=== PATIENT | male | born 1940 | race Caucasian/White ===

== ENCOUNTER 2017-02-21 08:44 | Outpatient (RCR) | payer MEDICARE, OTHER ==
[2017-02-21] VITALS (11 sets, daily range): BP systolic 122–168; BP diastolic 52–91; PULSE 74–108; TEMP 97.6–98.4
[~2017-02-21 08:44] MED LIST: ADVAIR 250/28 DISKU1 IH; ADVICOR PO; ALBUTEROL SULFAT3 M3 IH; ALBUTEROL0.83 MG/ML IH; ASPIRIN 81M81 MG/TA2 PO; ASPIRIN E.C. 8181 MG PO; CALCIUM 600 + V1 TA1 PO; CALCIUM500 MG PO; CEFTIN 250250 MG/TAB PO; COMBIRESP IH; COMBIVENT INH14.7 GM IH; COZAAR100 MG PO; CPAP; DALIRESP500 MCG PO; ERYTHROMYCIN500 M1 PO; FENOFIBRATE160 MG PO; FERATE27 MG PO; FLOMAX 0.40.4 MG/CAP PO; HCTZ 25MG TAB25 MG PO; HYZAAR 25 MG-101 TAB; HYZAAR 25 MG-101 TAB PO; IRON65 M1 PO; LASIX 20MG TABL20 MG PO; LASIX 40MG TABL40 MG PO; LEVAQUIN 5500 MG/TA1 PO; LEVOTHROID0.05 MG PO; MAG-OX 400400 MG PO; MULTIPLE VITAMI1 CAP PO; MULTIPLE VITAMI1 TAB PO; NIACIN500 M1 PO; OXYGEN; OXYGEN NAS; POTASSIUM CHELA99 MG PO; POTASSIUM99 MG PO; PRAVACHOL80 MG PO; PREDNISONE 5MG5 MG PO; PREDNISONE20 MG PO; RT ADVAIR 228 DISKUS IH; RT SPIRIVA18 MCG IH; SPIRIVA18 MCG IH; THEO-24400 MG PO; THEO-DUR 3300 MG/TAB PO; THEOPHYLLINE PO; TIROSINT50 MCG PO; VIAGRA100 M1; VITAMIN B-1000 MCG/T PO; VITAMIN C BUFF500 MG PO; VITAMIN C500 MG PO; ZITHROMAX 250M250 MG PO; ZITHROMAX500 M2 PO; [UNRECOGNIZED DRUG - CODE] PO; potassium
== END 2017-02-21 16:48 | disposition home or self-care (01) ==
LOC: EUO 08:44
DX: D64.9 Anemia, unspecified (principal); J44.9 Chronic obstructive pulmonary disease, unspecified; R60.0 Localized edema; Z87.891 Personal history of nicotine dependence
CPT/HCPCS: J1940; J7050; P9016

== ENCOUNTER 2017-03-28 12:00 | Day surgery (SDC) | payer MEDICARE, OTHER ==
[~2017-03-28] VITALS: Ht 168.9 cm; Wt 87.0 kg
[2017-03-28 12:58] VITALS: BP 124/67; PULSE 91; TEMP 98.4
[2017-03-28] MEDS ORDERED: COZAAR100 MG PO (13:08)
[2017-03-28] MEDS ORDERED: RT ADVAIR 528 DISKUS IH (13:15)
[2017-03-28] MEDS ORDERED: CEFTIN 250250 MG/TAB PO (13:16)
[2017-03-28 13:58] VITALS: BP 101/58; PULSE 102; TEMP 98.7
[2017-03-28 14:15] VITALS: BP 116/65; PULSE 79
[2017-03-28 14:30] VITALS: BP 114/60; PULSE 76
[2017-03-28 14:45] VITALS: BP 118/66; PULSE 79
[2017-03-28 17:51] VITALS: BP 101/59; PULSE 111
== END 2017-03-28 15:00 | disposition home or self-care (01) ==
LOC: SDCO 12:00
DX: K57.30 Diverticulosis of large intestine without perforation or abscess without bleeding (principal); D12.2 Benign neoplasm of ascending colon; K64.0 First degree hemorrhoids; K31.819 Angiodysplasia of stomach and duodenum without bleeding; D64.9 Anemia, unspecified; J44.9 Chronic obstructive pulmonary disease, unspecified; Z99.81 Dependence on supplemental oxygen; I10 Essential (primary) hypertension; E78.5 Hyperlipidemia, unspecified; E03.9 Hypothyroidism, unspecified; I50.9 Heart failure, unspecified; Z87.891 Personal history of nicotine dependence; K21.9 Gastro-esophageal reflux disease without esophagitis; K44.9 Diaphragmatic hernia without obstruction or gangrene; M19.90 Unspecified osteoarthritis, unspecified site; E07.9 Disorder of thyroid, unspecified; I34.0 Nonrheumatic mitral (valve) insufficiency
CPT/HCPCS: OP; J2704; J7030

== ENCOUNTER → 2017-10-05 | Outpatient (CLI) | payer MEDICARE, OTHER ==
[~2017-10-05] MED LIST changes: +RT ADVAIR 528 DISKUS IH
== END ==
LOC: COL.RAD 09-29 08:15
DX: M48.061 Spinal stenosis, lumbar region without neurogenic claudication (principal); M43.16 Spondylolisthesis, lumbar region; M43.12 Spondylolisthesis, cervical region

== ENCOUNTER → 2017-11-30 | Outpatient (CLI) | payer MEDICARE, OTHER | LOC: MHCPAIN 08:32 | DX: M48.061 Spinal stenosis, lumbar region without neurogenic claudication (principal) | CPT/HCPCS: J1100; Q9967 ==

== ENCOUNTER → 2017-12-13 | Outpatient (CLI) | payer MEDICARE, OTHER | LOC: MHCPAIN 13:07 | DX: G89.29 Other chronic pain (principal); M47.817 Spondylosis without myelopathy or radiculopathy, lumbosacral region; M54.16 Radiculopathy, lumbar region; M53.3 Sacrococcygeal disorders, not elsewhere classified; M48.061 Spinal stenosis, lumbar region without neurogenic claudication | CPT/HCPCS: G0463 ==

== ENCOUNTER → 2018-05-28 | Outpatient (CLI) | payer MEDICARE, OTHER ==
[~2018-05-28] MED LIST changes: +BREO IH; +NATURAL IRON65 MG PO
[2018-05-28 15:57] LABS: CREATININE, serum 1.14 mg/dL (0.66-1.25)
== END ==
LOC: COL.LAB 15:07
PROVIDERS: Internal Medicine Pulmonary Disease
DX: C34.92 Malignant neoplasm of unspecified part of left bronchus or lung (principal)

== ENCOUNTER → 2018-06-01 | Outpatient (CLI) | payer MEDICARE, OTHER | LOC: COL.RAD 09:28 | DX: C34.92 Malignant neoplasm of unspecified part of left bronchus or lung (principal) | CPT/HCPCS: A9585 ==

== ENCOUNTER → 2018-12-07 | Outpatient (CLI) | payer MEDICARE, OTHER | LOC: COL.VAS 07:30 | DX: I27.20 Pulmonary hypertension, unspecified (principal); I51.7 Cardiomegaly; I36.1 Nonrheumatic tricuspid (valve) insufficiency ==

== ENCOUNTER 2019-03-11 17:56 | Inpatient (IN) | payer MEDICARE, OTHER ==
[~2019-03-11] VITALS: Ht 170.2 cm; Wt 96.2 kg
[2019-03-11] VITALS (52 sets, daily range): BP systolic 91; BP diastolic 66; PULSE 152; TEMP 97.8; O2SAT 83–99
[2019-03-11 18:39] LABS: BASO % 0.2 % (0.0-2.0); GRAN # 10.1 (1.4-6.5); GRAN % 92.1 % (42.2-75.2); HEMOGLOBIN 10.4 g/dl (13.5-18.0); LYMPH # 0.3 (1.2-3.4); LYMPH % 2.5 % (20.0-51.0); MEAN CELL VOLUME 95 fl (80.0-100.0); MEAN CORPUSCULAR HEMOGLOBIN 30 pg (27.0-31.0); MEAN CORPUSCULAR HGB CONC 32 g/dl (33.0-37.0); MEAN PLATELET VOLUME 10.1 fl (7.4-10.4); MONO # 0.4 (0.1-0.6); MONO % 3.2 % (1.7-9.3); PLATELET COUNT 241 K/mm3 (130-400); RED BLOOD COUNT 3.44 M/mm3 (4.20-5.60); REDCELL DISTRIBUTION WIDTH-CV 13.2 % (11.5-14.5)
[2019-03-11 18:42] LABS: PROTHROMBIN TIME 11.5 SECONDS (9.7-12.8)
[2019-03-11 18:45] LABS: PARTIAL THROMBOPLASTIN TIME 31.2 SECONDS (26.0-37.0)
[2019-03-11 18:48] LABS: ALANINE AMINOTRANSFERASE 21 U/L (21-72); ALBUMIN 3.2 gm/dL (3.5-5.0); ALKALINE PHOSPHATASE 119 U/L (50-136); ANION GAP 10 mmol/L (7-16); AST,SGOT 21 U/L (15-37); BILIRUBIN,TOTAL 0.3 mg/dL (0.0-1.0); CALCIUM 9.8 mg/dL (8.4-10.2); CARBON DIOXIDE 33 mmol/L (22-30); CHLORIDE 92 mmol/L (98-107); GLUCOSE 122 mg/dL (74-106); POTASSIUM 5.2 mmol/L (3.4-5.0); SODIUM 135 mmol/L (137-145); TOTAL PROTEIN 6.5 gm/dL (6.4-8.2)
[2019-03-11 18:49] LABS: HEMATOCRIT 32.7 % (42.0-52.0)
[2019-03-11 18:50] LABS: CREATININE, serum 5.79 (0.66-1.25)
[2019-03-11 19:01] LABS: BLOOD UREA NITROGEN 135 mg/dL (9-20); TROPONIN-I < 0.012 ng/mL (0.000-0.035)
[2019-03-11] MEDS ORDERED: INCRUSE EL62.5 MCG/A INH (19:04)
[2019-03-11] MEDS ORDERED: FLOMAX 0.40.4 MG/CAP PO (19:04)
[2019-03-11] MEDS ORDERED: COMBIRESP INH (19:05)
[2019-03-11] MEDS ORDERED: RT ADVAIR 528 DISKUS INH (19:05)
[2019-03-11] MEDS ORDERED: SPIRIVA RE2.5 MCG/Ac INH (19:06)
[2019-03-11] MEDS ORDERED: LUTEIN20 M1 PO (19:06)
--- NOTE | 2019-03-11 21:15 | NUR ---
RE CALCULATED HEPARIN DRIP PER PT'S WEIGHT.NOW AT 1700 UNITS/HR WHICH IS 17 ML/HR.
--- NOTE | 2019-03-11 21:39 | NUR ---
REPORT RECEIVED FROM JOSEF ROWELL. AWAITING FOR PT'S ARRIVAL. E-PHARMACY CALLED WELL REGARDING LEVAQUIN TO COVER FOR PT'S INFECTION/PNA, OFFICE MACHINE INSPECTOR NOTIFIED WELL.
[2019-03-11] MEDS ORDERED: DOXYCYCLINE 10100 MG PO (21:42)
[2019-03-11] MEDS ORDERED: SYNTHROID0.05 MG/TA PO (21:48)
[2019-03-11] MEDS ORDERED: CALCIUM 600-D 61 TAB PO (21:55)
[2019-03-11] MEDS ORDERED: NATURAL POTASS595 MG PO (21:57)
--- NOTE | 2019-03-11 22:10 | NUR ---
PT ARRIVED IN UNIT VIA STRETCHER, ABLE TO TRANSFER SELF TO BED. PT ALERT AND ORIENTED X4, ON O2 AT 4 LPM. PT DENIES PAIN AT THIS TIME. PT ON AMIODARONE AND HEPARIN DRIP.
[2019-03-11] MEDS ORDERED: PREDNISONE20 MG PO (22:45)
[2019-03-11 22:49] LABS: THEOPHYLLINE 7.4 ug/mL (10.0-20.0)
[2019-03-11 23:05] LABS: TROPONIN-I 3 HR POST INITIAL < 0.012 ng/mL (0.000-0.034)
[2019-03-11 23:26] LABS: TSH w REFLEX 0.607 uIU/mL (0.465-4.680)
[2019-03-11 23:59] LABS: MAGNESIUM 2.7 mg/dL (1.6-2.3)
[2019-03-12] VITALS (638 sets, daily range): BP systolic 78–116; BP diastolic 46–69; PULSE 89–126; TEMP 97.5–98; O2SAT 86–100
[2019-03-12 00:23] LABS: COLLECTION METHOD CLEAN CATCH
[2019-03-12 00:33] LABS: HYALINE CAST >12 /lpf; MUCOUS Present /lpf; PH 5 (5-8); SQUAMOUS EPITHELIAL 0-2 /hpf; URINE APPEARANCE Clear; URINE BACTERIA None Seen /hpf; URINE BILIRUBIN Negative (NEGATIVE); URINE BLOOD 2+ (NEGATIVE); URINE COLOR Yellow; URINE GLUCOSE Negative (NEGATIVE); URINE KETONE Negative (NEGATIVE); URINE LEUKOCYTE ESTERASE Negative (NEGATIVE); URINE NITRATE Negative (NEGATIVE); URINE PROTEIN(semi-quant) Negative (NEGATIVE); URINE UROBILINOGEN Negative (NEGATIVE)
--- NOTE | 2019-03-12 00:36 | NUR ---
CALLED DR. MYERS SINCE PT'S HR SUSTAINING AT 120'S ANDWILL JUMP TO 130-140S AT TIMES, PER CHARLEEN FORD AMIODARONE ORDERED AND HE'LL SEE PT LANNY IN THE MORNING. PT'S BP AT 120/78 AND PT ASYMPTOMATIC AT THIS TIME. WILL CONTINUE TO MONITOR.
[2019-03-12 00:42] LABS: CREATININE, serum 5.29 (0.66-1.25); FRACTIONAL EXCRETION OF NA+ 0.8 %
--- NOTE | 2019-03-12 03:23 | NUR ---
THIS RN IS ABOUT TO CHANGE THE RATE OF AMIODARONE FOR THE 6 HRS AFTER INITIATION WHEN I NOTICED THAT THAT THE AMIODARONE WAS SET TO 0.5 MG/MIN INSTEAD OF 1 MG/MIN. E CARE WAS NOTIFIED AND ORDERED TO JUST KEPP RATE AT 0.5 MG/MIN. PT'S HR AT 110-140'S, MAINLY SUSTAINING AT 120S. BP IS 112/62. WILL CONTINUE TO MONITOR.
[2019-03-12 03:37] LABS: MEAN CELL VOLUME 97 fl (80.0-100.0); MEAN CORPUSCULAR HGB CONC 31 g/dl (33.0-37.0); MEAN PLATELET VOLUME 9.7 fl (7.4-10.4); PLATELET COUNT 206 K/mm3 (130-400); RED BLOOD COUNT 3.17 M/mm3 (4.20-5.60); REDCELL DISTRIBUTION WIDTH-CV 13.2 % (11.5-14.5)
[2019-03-12 03:38] LABS: HEMATOCRIT 30.6 % (42.0-52.0); HEMOGLOBIN 9.6 g/dl (13.5-18.0); MEAN CORPUSCULAR HEMOGLOBIN 30 pg (27.0-31.0)
[2019-03-12 03:55] LABS: ANION GAP 8 mmol/L (7-16); CALCIUM 8.7 mg/dL (8.4-10.2); CARBON DIOXIDE 31 mmol/L (22-30); CHLORIDE 97 mmol/L (98-107); GLUCOSE 115 mg/dL (74-106); POTASSIUM 4.9 mmol/L (3.4-5.0); SODIUM 136 mmol/L (137-145)
[2019-03-12 03:56] LABS: BAND 12 % (0-10); LYMPHOCYTE 4 % (20.0-51.0); METAMYELOCYTE 2 % (0-0); NEUTROPHILS 77 % (42.0-75.2)
[2019-03-12 03:57] LABS: HYPOCHROMIA 1+; PLATELET ESTIMATE NORMAL (NORMAL)
[2019-03-12 04:23] LABS: BLOOD UREA NITROGEN 129 mg/dL (9-20); CREATININE, serum 5.06 (0.66-1.25); TROPONIN-I < 0.012 ng/mL (0.000-0.035)
--- NOTE | 2019-03-12 08:30 | NUR ---
Patient alert and oriented, denies pain. at bedside. Dr Claros and Dr Eldridge in to see patient to discuss treatment plan. Pt denies SOB, just has a cough that leaves him a little winded after an episode, non productive.
--- NOTE | 2019-03-12 12:23 | NUR ---
Patient resting comfortably with family at bedside. Denies pain. HR controlled more with addition of esmolol per orders, BP dropping and MD changed esmolol dose to see if pt tolerates med better. Asymptomatic at this time
[2019-03-12 12:42] LABS: CALCIUM 8.6 mg/dL (8.4-10.2); POTASSIUM 4.8 mmol/L (3.4-5.0)
[2019-03-12 12:56] LABS: CREATININE, serum 4.68 (0.66-1.25)
--- NOTE | 2019-03-12 13:03 | NUR ---
SW met with patient and to discuss discharge planning. Patient lives at home with his . Patient's PCP is Dr Benoit and he obtains prescriptions from [facility]. Patient uses O2, a walker or cane, and a wheelchair at home. Patient does not use any home health services. Patient does have a DPOA. Patient will be seen by PT and OT. SW will continue to follow and assist with any discharge needs.
--- NOTE | 2019-03-12 16:22 | NUR ---
Patient resting comfortably and sleeping between cares. Family at bedside throughout the day. Denies pain. Urine output changing color from yellow this AM to tea colored this afternoon. Fluids still infusing, edema consistent and unchanged in BLE. Unable to assess gait as patient has remained in bed due to higher heart rates, does shift weight frequently/independently in bed.
[2019-03-13] VITALS (700 sets, daily range): BP systolic 110–129; BP diastolic 58–92; PULSE 92–101; TEMP 37.9; O2SAT 79–100
[2019-03-13 05:14] LABS: MEAN CELL VOLUME 98 fl (80.0-100.0); MEAN CORPUSCULAR HGB CONC 30 g/dl (33.0-37.0); PLATELET COUNT 240 K/mm3 (130-400); RED BLOOD COUNT 3.16 M/mm3 (4.20-5.60); REDCELL DISTRIBUTION WIDTH-CV 13.2 % (11.5-14.5)
[2019-03-13 05:18] LABS: HEMATOCRIT 30.9 % (42.0-52.0); HEMOGLOBIN 9.4 g/dl (13.5-18.0); MEAN CORPUSCULAR HEMOGLOBIN 30 pg (27.0-31.0)
[2019-03-13 05:33] LABS: CALCIUM 8.2 mg/dL (8.4-10.2); MAGNESIUM 2.6 mg/dL (1.6-2.3); PHOSPHOROUS 5.3 mg/dL (2.5-4.5); POTASSIUM 5.3 mmol/L (3.4-5.0)
[2019-03-13 05:38] LABS: CREATININE, serum 4.26 (0.66-1.25)
[2019-03-13 05:41] LABS: BAND 4 % (0-10); LYMPHOCYTE 3 % (20.0-51.0); METAMYELOCYTE 3 % (0-0); NEUTROPHILS 85 % (42.0-75.2); PLATELET ESTIMATE NORMAL (NORMAL)
--- NOTE | 2019-03-13 07:34 | NUR ---
Patient resting comfortably this AM, at bedside. Says he didn't get much sleep last night. Denies pain and SOB, no numbness or tingling. Edema in BLE and tea colored urine. HR still in afib, rates more controlled in the 90-110s on amio and heparin drip only. Plan to cardiovert this AM, pt and family agree and consent to procedure. NPO since midnight
--- NOTE | 2019-03-13 10:57 | NUR ---
First visit from the system software developer. Systems Manager prayed with patient and . No other needs right now.
--- NOTE | 2019-03-13 12:30 | NUR ---
Patient resting comfortably with at the bedside. Reviewed and signed consent paperwork for INDIO with cardioversion today at 3p with anesthesia and biometrics technician.
--- NOTE | 2019-03-13 15:22 | NUR ---
Patient consent signed for INDIO with cardioversion. MD Fregoso at bedside with CARLEE leal at bedside as well. Patient sedated with 120 propofol, 20 ketamine, and 100ml NS. Cardioverted from afib to NSR at 1522, 200 joules, only shocked once. Patient tolerated well and had no issues recovering.
--- NOTE | 2019-03-13 18:04 | NUR ---
Patient resting after cardioversion this afternoon. NSR acheived. Frequent coughing after INDIO, secretions consistent with previous sputum. Family at bedside, denies pain
--- NOTE | 2019-03-13 19:30 | NUR ---
Bedside report received from JOSEF Betts. All lines and medications reviewed.
--- NOTE | 2019-03-13 20:00 | NUR ---
Patient resting in bed at this time. Assessment complete. He is alert and oriented. at bedside. Assessment reveals clear upper lobes bilaterally with coarse and diminished lower lobes. Patient has no complaints of pain or SOB. He is alert and oriented x3. Patient says he would just like to sleep some. Repositioned for comfort. Vitals are WNL and stable. Will continue to monitor. no further needs at this time. Call light within reach.
[2019-03-14] VITALS (428 sets, daily range): BP systolic 117–156; BP diastolic 53–65; PULSE 74–98; TEMP 97.6–98.8; O2SAT 87–100
--- NOTE | 2019-03-14 | NUR ---
Patient asleep at this time. Awakens to name. No complaints of pain or discomfort. No SOB. Vitals have remained stable. No acute signs of distress. Patient has no current needs. Will continue to monitor. Call light within reach.
--- NOTE | 2019-03-14 02:15 | NUR ---
Patient has complaints at this time of some restless leg. Patient is wondering if he has any medications he can have for it. Let him know that there is nothing currently on his EMAR to help with restless leg. Let him know I could contact the physician if he needs something. Patient denies immediate need for medication at this time. Will continue to monitor. Call light within reach.
--- NOTE | 2019-03-14 04:00 | NUR ---
Patient asleep at this time. Patient O2 sats have dipped down to 90% even on 6L HFNC. Patient awakens to name. Placed on CPAP. RT notified. Patient's O2 sats are now 96%. Patient has no complaints of pain and restless leg symtpoms have stopped. No further needs. Will continue to monitor. Call light within reach.
[2019-03-14 05:38] LABS: MEAN CELL VOLUME 99 fl (80.0-100.0); MEAN CORPUSCULAR HGB CONC 31 g/dl (33.0-37.0); MEAN PLATELET VOLUME 9.5 fl (7.4-10.4); PLATELET COUNT 220 K/mm3 (130-400); RED BLOOD COUNT 2.97 M/mm3 (4.20-5.60); REDCELL DISTRIBUTION WIDTH-CV 13.4 % (11.5-14.5)
[2019-03-14 05:40] LABS: HEMATOCRIT 29.4 % (42.0-52.0); HEMOGLOBIN 9.1 g/dl (13.5-18.0); MEAN CORPUSCULAR HEMOGLOBIN 31 pg (27.0-31.0)
[2019-03-14 05:46] LABS: BAND 5 % (0-10); LYMPHOCYTE 2 % (20.0-51.0); METAMYELOCYTE 3 % (0-0); MYELOCYTE 1 % (0-0); NEUTROPHILS 86 % (42.0-75.2); PLATELET ESTIMATE NORMAL (NORMAL)
[2019-03-14 05:47] LABS: CALCIUM 8.5 mg/dL (8.4-10.2); CREATININE, serum 3.89 (0.66-1.25); POTASSIUM 5.5 mmol/L (3.4-5.0)
--- NOTE | 2019-03-14 07:44 | NUR ---
Bedside report given to JOSEF Davenport
--- NOTE | 2019-03-14 07:52 | NUR ---
Pt AAOx4 resting in bed with CPAP in place. Spouse at bedside. MD Zenobia already in to see pt - plan to convert to PO amiodarone and DC gtt. Menu provided, PO fluids and food encouraged.
--- NOTE | 2019-03-14 10:30 | NUR ---
MD Vandana here speaking with pt and spouse. All questions answered.
--- NOTE | 2019-03-14 19:16 | NUR ---
Up to floor this afternoon from ICU, no C/O pain, VS have been stable, Pt is ambulatory with standby assist.
--- NOTE | 2019-03-14 20:03 | NUR ---
Patient resting in bed, family at bedside. Assessment completed, VSS< afebrile. Denies pain. Tremors noted on patient. Patient will notify staff when needing to ambulate to restroom. Call light in reach. NO further needs at this time.
[2019-03-15] VITALS (7 sets, daily range): BP systolic 127–147; BP diastolic 52–84; PULSE 81–96; TEMP 97.3–98
--- NOTE | 2019-03-15 05:15 | NUR ---
Pt slept on/off last night. UP to use restroom several times. SOB with exertion. No needs at this time.
[2019-03-15 06:02] LABS: MEAN CELL VOLUME 98 fl (80.0-100.0); MEAN CORPUSCULAR HGB CONC 31 g/dl (33.0-37.0); MEAN PLATELET VOLUME 9.9 fl (7.4-10.4); PLATELET COUNT 247 K/mm3 (130-400); RED BLOOD COUNT 2.84 M/mm3 (4.20-5.60); REDCELL DISTRIBUTION WIDTH-CV 13.6 % (11.5-14.5)
[2019-03-15 06:03] LABS: HEMATOCRIT 27.9 % (42.0-52.0); HEMOGLOBIN 8.6 g/dl (13.5-18.0); MEAN CORPUSCULAR HEMOGLOBIN 30 pg (27.0-31.0)
[2019-03-15 06:13] LABS: CALCIUM 8.7 mg/dL (8.4-10.2); CREATININE, serum 3.41 (0.66-1.25); POTASSIUM 5.6 mmol/L (3.4-5.0)
--- NOTE | 2019-03-15 07:10 | NUR ---
report given to maisha oglesby
--- NOTE | 2019-03-15 08:43 | NUR ---
Pt sitting up in bed resting, no C/O pain at this time, shift assessments complete, left Pt call light in reach, bed in lowest position.
--- NOTE | 2019-03-15 10:01 | NUR ---
JODY met with the patient to review discharge plan and to discuss physical therapies recommendation of home health vs outpatient therapy. The patient reports that he still plans to return home with his and that he would prefer home health. SW presented the patient with Medicare.gov's list of home health agencies that serve [place]. The patient reports that he would like to wait until his returns to look over the list with her. SW to follow up with the patient and his .
--- NOTE | 2019-03-15 14:16 | NUR ---
JODY followed up with the patient and patient's , Katharina, on a home health preference. The patient and his chose [facility]. JODY contacted and faxed a referral to Azar at [facility]. SW awaiting their screening.
--- NOTE | 2019-03-15 15:09 | NUR ---
Azar, at [facility], reports that they can accept the patient for services. SW to inform the patient and patient's and will continue to follow.
--- NOTE | 2019-03-15 18:20 | NUR ---
Pt has been resting comfortably in the room he has been up to the recliner and to the bed, Pt has been to the restroom on own with use of the walker. VS have remained stable during the day with no C/O pain. Pt is still producing dark tea colored urine, Pt was educated on the restriction of fluid intake.
[2019-03-16 03:52] VITALS: BP 153/63; PULSE 88; TEMP 97.8
--- NOTE | 2019-03-16 04:49 | NUR ---
PT HAD UNEVENTFUL NOC. APPEARED TO HAVE SLEPT WELL. NO C/O PAIN. PT REMAINS HAVING HEMATURIA. PT HAS FOLLOWED FLUID RESTRICTION OF 1500 WITHOUT ISSUE THIS SHIFT. NO ISSUES OR CONSERNS VOICED OVER NOC.
[2019-03-16 07:03] LABS: MEAN CELL VOLUME 95 fl (80.0-100.0); MEAN CORPUSCULAR HGB CONC 32 g/dl (33.0-37.0); MEAN PLATELET VOLUME 9.8 fl (7.4-10.4); PLATELET COUNT 241 K/mm3 (130-400); REDCELL DISTRIBUTION WIDTH-CV 13.8 % (11.5-14.5)
[2019-03-16 07:14] LABS: CALCIUM 8.7 mg/dL (8.4-10.2); CREATININE, serum 2.99 (0.66-1.25); POTASSIUM 5.2 mmol/L (3.4-5.0)
[2019-03-16 07:28] LABS: HEMATOCRIT 25.7 % (42.0-52.0); HEMOGLOBIN 8.2 g/dl (13.5-18.0); MEAN CORPUSCULAR HEMOGLOBIN 30 pg (27.0-31.0)
[2019-03-16 08:20] LABS: EOSINOPHIL 1 % (0-4); HYPOCHROMIA 1+; LYMPHOCYTE 5 % (20.0-51.0); METAMYELOCYTE 2 % (0-0); MYELOCYTE 2 % (0-0); NEUTROPHILS 84 % (42.0-75.2); PLATELET ESTIMATE NORMAL (NORMAL)
[2019-03-16 08:50] VITALS: BP 148/60; PULSE 85; TEMP 98.3
--- NOTE | 2019-03-16 10:59 | NUR ---
Pt resting in bed, no C/O pain at this time, shift assessments complete, left Pt call light in reach, bed in lowest position.
[2019-03-16 12:45] VITALS: BP 142/56; PULSE 103; TEMP 97.6
[2019-03-16 15:29] VITALS: BP 152/60; PULSE 108
--- NOTE | 2019-03-16 18:08 | NUR ---
Pt resting comfortably in room, no C/O pain, VS have remained stable. Urine output is good but the urine remains very dark. Pt had a bath with the assistance of the SALES DEPARTMENT MANAGER, and has walked in the hallway with PT.
[2019-03-16 19:04] VITALS: BP 153/63; PULSE 92; TEMP 98.2
[2019-03-16 23:20] VITALS: BP 149/56; PULSE 89; TEMP 97.9
[2019-03-17] VITALS (12 sets, daily range): BP systolic 130–163; BP diastolic 56–690; PULSE 66–97; TEMP 97.6–98.4
--- NOTE | 2019-03-17 04:30 | NUR ---
PT HAD UNEVENTFUL NOC. APPEARED TO HAVE SLEPT WELL. NO C/O PAIN. NO ISSUES OR CONSERNS VOICED.
--- NOTE | 2019-03-17 06:48 | NUR ---
Received report from JOSEF Noriega.
[2019-03-17 06:57] LABS: RED BLOOD COUNT 2.58 M/mm3 (4.20-5.60)
[2019-03-17 06:58] LABS: MEAN CELL VOLUME 99 fl (80.0-100.0); MEAN CORPUSCULAR HGB CONC 31 g/dl (33.0-37.0); MEAN PLATELET VOLUME 10.6 fl (7.4-10.4); PLATELET COUNT 228 K/mm3 (130-400); REDCELL DISTRIBUTION WIDTH-CV 14.1 % (11.5-14.5)
[2019-03-17 07:02] LABS: HEMATOCRIT 25.6 % (42.0-52.0); HEMOGLOBIN 7.8 g/dl (13.5-18.0); MEAN CORPUSCULAR HEMOGLOBIN 30 pg (27.0-31.0)
[2019-03-17 07:04] LABS: CALCIUM 8.7 mg/dL (8.4-10.2); CREATININE, serum 2.74 (0.66-1.25); POTASSIUM 5.5 mmol/L (3.4-5.0)
[2019-03-17 07:45] LABS: BAND 3 % (0-10); LYMPHOCYTE 1 % (20.0-51.0); METAMYELOCYTE 3 % (0-0); MYELOCYTE 1 % (0-0); NEUTROPHILS 91 % (42.0-75.2)
[2019-03-17 07:46] LABS: HYPOCHROMIA 1+; PLATELET ESTIMATE NORMAL (NORMAL)
--- NOTE | 2019-03-17 08:43 | NUR ---
Pt resting in bed, spouse in room, no C/O pain at this time, shift assessments complete, left Pt call light in reach, bed in lowest position,
[2019-03-17 15:32] LABS: MEAN CELL VOLUME 96 fl (80.0-100.0); MEAN CORPUSCULAR HGB CONC 32 g/dl (33.0-37.0); MEAN PLATELET VOLUME 9.9 fl (7.4-10.4); PLATELET COUNT 241 K/mm3 (130-400); RED BLOOD COUNT 2.98 M/mm3 (4.20-5.60); REDCELL DISTRIBUTION WIDTH-CV 14.9 % (11.5-14.5)
[2019-03-17 15:33] LABS: HEMATOCRIT 28.6 % (42.0-52.0); HEMOGLOBIN 9.1 g/dl (13.5-18.0); MEAN CORPUSCULAR HEMOGLOBIN 31 pg (27.0-31.0)
--- NOTE | 2019-03-17 23:45 | NUR ---
Patient assessed around 1949. Alert and oriented, an able to make needs known. Denies having pain and discomfort. Peripheral INT to left forearm flushed. Site is without redness, warmth, swelling, and pain. Patient did state he was having SOB and dyspnea with exertion. Patient wears oxygen at 6 L/min via NC during the night. reports that he refuses to wear CPAP. LS CTA in upper lobes, diminished in lower. HRR. BSAx4. Patient on Golitely bowel prep for colonscopy tomorrow, and has been tolerating well so far. Stools are liquid and brown in color. No solid contents noted in last BM. At beginning of shift, emptied urinal with urine that was dark brown with hematuria present. Emptied urinal around 1999 that was yellow and cloudy. Denies having burning, pain, and discomfort with urination. Patient does have tremors, which is baseline for patient according to . Patient is resting in bed with eyes closed at this time. remains at bedside and staying the night. Call light is within reach.
[2019-03-18] VITALS (11 sets, daily range): BP systolic 110–146; BP diastolic 50–97; PULSE 79–102; TEMP 97.6–98.3
--- NOTE | 2019-03-18 04:28 | NUR ---
Patient has almost completed bowel prep for colonoscopy for 03/18/19. Tolerating well. Continues to have liquid stools, brown in color. No formed content present. Denies having nausea. Unable to observe any urine seperate from stool since beginning of shift. Continues to wear oxygen at 6 L/min via NC. Denies having SOB and dyspnea. Has been using bedside commode. remains at bedside. Both deny having any questions, needs, or concerns. Resting in bed with eyes closed at this time. Call light is within reach.
[2019-03-18 05:54] LABS: MEAN CELL VOLUME 96 fl (80.0-100.0); MEAN CORPUSCULAR HGB CONC 31 g/dl (33.0-37.0); MEAN PLATELET VOLUME 9.9 fl (7.4-10.4); PLATELET COUNT 227 K/mm3 (130-400); RED BLOOD COUNT 2.75 M/mm3 (4.20-5.60); REDCELL DISTRIBUTION WIDTH-CV 15.1 % (11.5-14.5)
[2019-03-18 05:57] LABS: CALCIUM 8.7 mg/dL (8.4-10.2); CREATININE, serum 2.6 (0.66-1.25); POTASSIUM 5.5 mmol/L (3.4-5.0)
[2019-03-18 06:06] LABS: HEMATOCRIT 26.5 % (42.0-52.0); HEMOGLOBIN 8.3 g/dl (13.5-18.0); MEAN CORPUSCULAR HEMOGLOBIN 30 pg (27.0-31.0)
--- NOTE | 2019-03-18 06:15 | NUR ---
Continues on bowel prep. Stools liquid, brown in color. Consent form for EGD/Colonoscopy signed by and put on chart. Continues on oxygen at 6 L/min via NC. Denies having SOB and dyspnea. Hgb decreased from 9.1 to 8.3 this morning. Voices no needs or concerns at this time. Resting in bed with call light within reach.
[2019-03-18 06:55] LABS: EOSINOPHIL 1 % (0-4); LYMPHOCYTE 5 % (20.0-51.0); NEUTROPHILS 86 % (42.0-75.2); PLATELET ESTIMATE NORMAL (NORMAL)
--- NOTE | 2019-03-18 08:40 | NUR ---
Pt resting in bed, spouse in room with Pt, no C/O pain at this time, bowel prep has 200ml left to consume. Shift assessments complete, left Pt call light in reach, bed in lowest position.
--- NOTE | 2019-03-18 17:51 | NUR ---
Received report from JOSEF Ojeda. This nurse will resume care until end of shift. patient laying in bed with at bedside. Post ops monitoring in process. Denies needs at this time. Diet advanced, tolerating PO liquids and crackers. Call light within reach.
--- NOTE | 2019-03-18 23:56 | NUR ---
Patient assessed around 2124. Alert and oriented, and able to make needs known. Tolerating food and fluids well. Denies having nausea, pain, and discomfort. Peripheral INT to left forearm flushed. Site is without redness, warmth, swelling, and pain. On oxygen at 6 L/min via NC. Denies having SOB and dyspnea. LS CTA. HRR. BSAx4. Non pitting edema BUE, 2+ BLE. Continues to have clear, yellow urine output. Tremors present, baseline. Denies having any questions, needs, or concerns. Call light is within reach.
[2019-03-19 00:57] VITALS: BP 128/69; PULSE 75; TEMP 98.2
--- NOTE | 2019-03-19 02:42 | NUR ---
Urinal emptied. Urine is clear and yellow. Reminded patient that we need to obtain a stools sample, and voiced understanding. Resting in bed with eyes closed at this time. Call light is within reach.
[2019-03-19 04:43] VITALS: BP 149/65; PULSE 75; TEMP 98
--- NOTE | 2019-03-19 06:09 | NUR ---
Continues on oxygen at 6 L/min via NC. Denies having pain, discomfort, SOB, and dypsnea. Voices no questions, needs, or concerns at this time. Noted urine to be yellow and clear, but only small amounts when he does urinate. Denies having burning, pain, and discomfort with urination. Patient does have hesitancy when trying to urinate. Denies having feelings of not being able to empty his bladder all the way. Resting in bed with eyes closed at this time. Call light is within reach.
[2019-03-19 06:53] LABS: MEAN CELL VOLUME 97 fl (80.0-100.0); MEAN CORPUSCULAR HGB CONC 31 g/dl (33.0-37.0); MEAN PLATELET VOLUME 10.3 fl (7.4-10.4); PLATELET COUNT 237 K/mm3 (130-400); RED BLOOD COUNT 2.84 M/mm3 (4.20-5.60); REDCELL DISTRIBUTION WIDTH-CV 14.7 % (11.5-14.5)
[2019-03-19 06:58] LABS: CALCIUM 8.5 mg/dL (8.4-10.2); CREATININE, serum 2.56 (0.66-1.25); PHOSPHOROUS 4.1 mg/dL (2.5-4.5)
[2019-03-19 07:20] VITALS: BP 142/46; PULSE 79; TEMP 97.7
--- NOTE | 2019-03-19 07:21 | NUR ---
Report given to day shift nurse.
[2019-03-19 07:24] LABS: HEMATOCRIT 27.5 % (42.0-52.0); HEMOGLOBIN 8.5 g/dl (13.5-18.0); MEAN CORPUSCULAR HEMOGLOBIN 30 pg (27.0-31.0)
--- NOTE | 2019-03-19 08:55 | NUR ---
Patient assessment complete and charted. Patient laying in bed with at bedside. Patient denies chest pain, SOB, N/V. Patient denies pain. BLE 3+ and bilateral hand 2+ edema noted. Patient on 5L NC. LFA IV patent. SCDs on BLE. Dr. Benoit, Pts PCP, in to visit with patient this morning, recommending palliative care consult. This nurse will talk with Dr. Barnett before rounds. Denies other needs at this time. Call light within reach.
[2019-03-19 09:28] LABS: EOSINOPHIL 5 % (0-4); HYPOCHROMIA 1+; LYMPHOCYTE 6 % (20.0-51.0); MYELOCYTE 2 % (0-0); NEUTROPHILS 82 % (42.0-75.2); PLATELET ESTIMATE NORMAL (NORMAL)
[2019-03-19] MEDS ORDERED: PROTONIX 40MG T40 MG PO (11:29)
--- NOTE | 2019-03-19 11:34 | NUR ---
Talked with patient and his about goals of care. Family is very important to both of them and has been very helpful and supportive. Pt is still able to be at home without assistance for part of the day and his can "do what she wants to do". Their biggest frustration is that not all the doctors talk to each other and their care can sometimes be confusing. Dr Benoit was at the hospital for a social visit earlier and suggested palliative care consult for goals. Bernard did share that he keeops a journal and writes many of his thoughts and wishes in there. He shared with us that he would not want to be hooked to machine as his nears but would rather be with family and have their support. Currently he still recovery as a goal and to continue to use efforts to keep him going.
[2019-03-19] MEDS ORDERED: CORDARONE200 MG/TAB PO (11:38)
[2019-03-19 11:53] VITALS: BP 147/61; PULSE 80; TEMP 98
--- NOTE | 2019-03-19 13:17 | NUR ---
JODY followed up with the patient and his to review discharge plan. The patient and his report that they still feel comfortable with the patient returning back home with home health. The patient's reports that their granddaughter is a nurse and that she stops in frequently to check in. The patient is to discharge back home with his today, 03/19, and home health services for usp/PT/OT through [facility]. JODY also presented and explained the IM form to the patient's . The patient's verbalized understanding, signed, and she was provided a copy. No additional needs at this time.
--- NOTE | 2019-03-19 15:57 | NUR ---
Patient discharge instructions discussed with patient and . All questions answered. LFA IV discontinued, catheter intact, no complications. No other needs. patient escorted out via wheelchair by Jeanette. Per , portable O2 with patient in car.
== END 2019-03-19 16:01 | disposition home health service (06) | DRG 682 ==
LOC: COL.ER 17:56 → ICU 19:57 → MEDICAL 19:57
PROVIDERS: Family Medicine; Hospitalist; Internal Medicine Gastroenterology; Nurse Practitioner Family; Physician Assistant; ADMIT Internal Medicine
PROC: 5A2204Z Restoration of Cardiac Rhythm, Single (ICD-10-PCS; principal; 2019-03-13)
PROC: 0DBK8ZX Excision of Ascending Colon, Via Natural or Artificial Opening Endoscopic, Diagnostic (ICD-10-PCS; 2019-03-18)
PROC: 0DJ08ZZ Inspection of Upper Intestinal Tract, Via Natural or Artificial Opening Endoscopic (ICD-10-PCS; 2019-03-18 15:45)
DX: N17.9 Acute kidney failure, unspecified (principal); J18.1 Lobar pneumonia, unspecified organism; K25.4 Chronic or unspecified gastric ulcer with hemorrhage; J44.0 Chronic obstructive pulmonary disease with (acute) lower respiratory infection; J96.11 Chronic respiratory failure with hypoxia; C34.92 Malignant neoplasm of unspecified part of left bronchus or lung; D62 Acute posthemorrhagic anemia; I13.0 Hypertensive heart and chronic kidney disease with heart failure and stage 1 through stage 4 chronic kidney disease, or unspecified chronic kidney disease; I50.32 Chronic diastolic (congestive) heart failure; I48.91 Unspecified atrial fibrillation; E87.5 Hyperkalemia; E86.0 Dehydration; R53.81 Other malaise; E83.52 Hypercalcemia; E78.5 Hyperlipidemia, unspecified; E03.9 Hypothyroidism, unspecified; N40.0 Benign prostatic hyperplasia without lower urinary tract symptoms; Z66 Do not resuscitate; Z87.891 Personal history of nicotine dependence; Z88.8 Allergy status to other drugs, medicaments and biological substances; Z99.81 Dependence on supplemental oxygen; N18.9 Chronic kidney disease, unspecified; D63.1 Anemia in chronic kidney disease; R31.9 Hematuria, unspecified; D12.2 Benign neoplasm of ascending colon
CPT/HCPCS: 99231-AI; 99232-AI; 99233-AI; 99239; A4216; J0282; J0692; J1160; J1644; J1956; J2704; J7030; J7060; J7512; P9016

== ENCOUNTER 2019-05-24 07:19 | Day surgery (SDC) | payer MEDICARE, OTHER ==
[~2019-05-24] VITALS: Ht 167.6 cm; Wt 84.1 kg
[~2019-05-24 07:19] MED LIST changes: +CALCIUM 600-D 61 TAB PO; +COMBIRESP INH; +CORDARONE200 MG/TAB PO; +DOXYCYCLINE 10100 MG PO; +INCRUSE EL62.5 MCG/A INH; +LUTEIN20 M1 PO; +NATURAL POTASS595 MG PO; +PROTONIX 40MG T40 MG PO; +RT ADVAIR 528 DISKUS INH; +SPIRIVA RE2.5 MCG/Ac INH; +SYNTHROID0.05 MG/TA PO
[2019-05-24] MEDS ORDERED: CARDIZEM CD 12120 MG PO (07:57)
[2019-05-24] MEDS ORDERED: K-TAB10 PO (07:58)
[2019-05-24] MEDS ORDERED: OXYGEN MC (07:59)
[2019-05-24 08:24] VITALS: BP 130/67; PULSE 85; TEMP 98.4
[2019-05-24 09:10] VITALS: BP 109/62; PULSE 78; TEMP 98
--- NOTE | 2019-05-24 09:10 | NUR ---
Patient brought backt to bay 3, alert and oriented. Ambulated to chair without difficulty. Remains on 3L oxygen via nasal cannula. Denies any nausea or vommiting. Requesting apple juice and crackers. Vital signs stable. Will continue to monitor.
[2019-05-24 09:25] VITALS: BP 116/52; PULSE 83
--- NOTE | 2019-05-24 09:25 | NUR ---
Patient denies any pain or nausea. States he is feeling well at this time. Vital signs remain stable. at bedside. Call weiss within reach will continue to monitor.
[2019-05-24 09:40] VITALS: BP 130/65; PULSE 74
--- NOTE | 2019-05-24 09:41 | NUR ---
Patient states he feels ready to go home at this time. Vital signs stable. Awaiting physician to speak with patient at this time. All safety maintained will contiue to monitor.
--- NOTE | 2019-05-24 10:08 | NUR ---
Discharge instructions reviewed with patient and . Verbalized understanding. All questions answered. Per Dr. Arriaga copy of report given to patient. Patient to get dressed at this time.
--- NOTE | 2019-05-24 10:20 | NUR ---
Patient brought down to lobby via wheel chair. To be driven home by . Patient brought home oxygen. Placed on 3L via nasal cannula.
== END 2019-05-24 10:20 | disposition home or self-care (01) ==
LOC: SDCO 07:19
DX: D50.9 Iron deficiency anemia, unspecified (principal); K21.9 Gastro-esophageal reflux disease without esophagitis; K29.30 Chronic superficial gastritis without bleeding; I48.91 Unspecified atrial fibrillation; E66.9 Obesity, unspecified; N18.9 Chronic kidney disease, unspecified; K92.1 Melena; I11.0 Hypertensive heart disease with heart failure; I50.9 Heart failure, unspecified; J44.9 Chronic obstructive pulmonary disease, unspecified; G47.33 Obstructive sleep apnea (adult) (pediatric); J96.11 Chronic respiratory failure with hypoxia; D64.9 Anemia, unspecified; Z87.11 Personal history of peptic ulcer disease; Z79.01 Long term (current) use of anticoagulants; Z88.1 Allergy status to other antibiotic agents; Z86.010 Personal history of colon polyps; Z85.118 Personal history of other malignant neoplasm of bronchus and lung; Z92.3 Personal history of irradiation
CPT/HCPCS: J2704; J7030

== ENCOUNTER → 2019-10-16 | Outpatient (CLI) | payer MEDICARE, OTHER ==
[~2019-10-16] MED LIST changes: +CARDIZEM CD 12120 MG PO; +K-TAB10 PO; +OXYGEN MC
== END ==
LOC: COL.RAD 14:41
DX: R05 Cough (principal)

== ENCOUNTER 2019-12-23 07:00 | Outpatient (CLI) | payer MEDICARE, OTHER ==
[2019-12-23] VITALS (11 sets, daily range): BP systolic 81–142; BP diastolic 39–97; PULSE 63–136; TEMP 98
[~2019-12-23] VITALS: Ht 167.6 cm; Wt 88.3 kg
[~2019-12-23 07:00] MED LIST changes: +BREO ELLIPTA 21 EACH IH; +ELIQUIS 2.5 PO; +INCRUSE EL62.5 MCG/A IH; +UROCIT-K 5540 MG/TAB PO
--- NOTE | 2019-12-23 08:31 | NUR ---
PT BROUGHT BACK TO CT AND POSITIONED ON THE TABLE. MONITORING EQUIPMENT PLACED AND IMAGES TAKEN
--- NOTE | 2019-12-23 08:55 | NUR ---
PROCEDRUE COMPLETED. MONITORING EQUIPMENT REMOVED. PT TRANSFERED TO WHEELCHAIR AND TAKEN TO EU9.
--- NOTE | 2019-12-23 09:00 | NUR ---
Patient came to express room 9 at this time from radiology s/p lung biopsy, he is alert/oriented, vital signs stable, denies pain or discomfort, left sided puncutre site dressing is C/D/I, lungs are CTA, CXR for 1030
--- NOTE | 2019-12-23 10:32 | NUR ---
has reviewed patients CXR and it looks good/ he has given ok to discharge home, dressing C/D/I, denies pain, VS stalbe, here and I will escort them out the door
== END 2019-12-23 11:08 | disposition home or self-care (01) ==
LOC: COL.RAD 07:00
DX: C34.92 Malignant neoplasm of unspecified part of left bronchus or lung (principal)
CPT/HCPCS: 32107

== ENCOUNTER → 2020-02-26 | Outpatient (CLI) | payer MEDICARE, OTHER ==
[2020-02-26 10:59] LABS: BASO % 0.2 % (0.0-2.0); EOS # 0.1 (0.0-0.7); EOS % 0.8 % (0-4.0); GRAN # 6.5 (1.4-6.5); GRAN % 77.7 % (42.2-75.2); HEMOGLOBIN 10.6 g/dl (13.5-18.0); LYMPH # 1.1 (1.2-3.4); LYMPH % 13.7 % (20.0-51.0); MEAN CELL VOLUME 96 fl (80.0-100.0); MEAN CORPUSCULAR HEMOGLOBIN 30 pg (27.0-31.0); MEAN CORPUSCULAR HGB CONC 31 g/dl (33.0-37.0); MEAN PLATELET VOLUME 10.4 fl (7.4-10.4); MONO # 0.6 (0.1-0.6); MONO % 7.2 % (1.7-9.3); PLATELET COUNT 211 K/mm3 (130-400); RED BLOOD COUNT 3.59 M/mm3 (4.20-5.60); REDCELL DISTRIBUTION WIDTH-CV 12.9 % (11.5-14.5)
[2020-02-26 11:06] LABS: HEMATOCRIT 34.4 % (42.0-52.0)
[2020-02-26 21:22] LABS: PROCALCITONIN 0.05 ng/mL (0.00-0.09)
== END ==
LOC: COL.RAD 10:14
PROVIDERS: Internal Medicine Pulmonary Disease
DX: J84.9 Interstitial pulmonary disease, unspecified (principal); R91.8 Other nonspecific abnormal finding of lung field

== ENCOUNTER 2020-06-24 05:21 | Day surgery (SDC) | payer MEDICARE, OTHER ==
[~2020-06-24] VITALS: Ht 170.2 cm; Wt 83.5 kg
[2020-06-24 05:46] VITALS: BP 132/58; PULSE 80; TEMP 99
[2020-06-24] MEDS ORDERED: TYLENOL 325MG325 MG PO (05:54)
[2020-06-24] MEDS ORDERED: B-121000 MCG PO (06:24)
[2020-06-24] MEDS ORDERED: FOLIC ACID 11 MG/TA1 PO (06:24)
[2020-06-24 08:05] VITALS: BP 107/71; PULSE 73; TEMP 98.1
[2020-06-24] MEDS ORDERED: NORCO 325 MG-51 TAB PO (08:05)
--- NOTE | 2020-06-24 08:05 | NUR ---
The patient arrived back to [facility] from the operating room at this time. The patient appears drowsy but arouses easily to his name. The patient's post operative vital signs were started at this time. The patient's dressing to his right chest appears clean, dry and intact. The patient denies any pain or nausea at this time. The patient's is at his bedside at this time. The patient agrees to try a muffin and coffee at this time. Call light is within reach. Will continue to monitor the patient.
[2020-06-24 08:20] VITALS: BP 110/73; PULSE 77
--- NOTE | 2020-06-24 08:20 | NUR ---
The patient appears to be tolerating the muffin and coffee well. Vital signs appear stable. Call light remains within reach. at bedside. Will continue to monitor the patient.
[2020-06-24 08:35] VITALS: BP 110/60; PULSE 68
--- NOTE | 2020-06-24 08:35 | NUR ---
The patient has finished his food and drink and appeared to tolerate it well. The patient voices a desire to be discharged home.
--- NOTE | 2020-06-24 08:55 | NUR ---
Discharge instructions were reviewed with the severianotent and his at this time. They both verbalized understanding and have no questions for the nurse at this time. The patient's IV to his left wrist was removed and a pressure dressing was applied to the site. The nurse instructed the patient to get dressed and notify the staff when he is ready to be escorted out.
--- NOTE | 2020-06-24 09:10 | NUR ---
The patient was escorted out via wheelchair to a private vehicle by JOSEF Abad. The patient's belongings and discharge paperwork were sent with him. The patient's is present to drive him home.
== END 2020-06-24 09:10 | disposition home or self-care (01) ==
LOC: SDCO
DX: C34.12 Malignant neoplasm of upper lobe, left bronchus or lung (principal); J43.9 Emphysema, unspecified; I48.11 Longstanding persistent atrial fibrillation; D63.0 Anemia in neoplastic disease; G47.33 Obstructive sleep apnea (adult) (pediatric); I13.0 Hypertensive heart and chronic kidney disease with heart failure and stage 1 through stage 4 chronic kidney disease, or unspecified chronic kidney disease; I50.9 Heart failure, unspecified; N18.9 Chronic kidney disease, unspecified; E07.9 Disorder of thyroid, unspecified; G89.29 Other chronic pain; J96.11 Chronic respiratory failure with hypoxia; I25.2 Old myocardial infarction; E78.00 Pure hypercholesterolemia, unspecified; R20.2 Paresthesia of skin; M19.90 Unspecified osteoarthritis, unspecified site; Z99.81 Dependence on supplemental oxygen; Z20.828 Contact with and (suspected) exposure to other viral communicable diseases; Z79.01 Long term (current) use of anticoagulants; Z79.899 Other long term (current) drug therapy; Z92.3 Personal history of irradiation
CPT/HCPCS: C1788; J0690; J1644; J2704

== ENCOUNTER 2020-08-06 15:16 | Outpatient (RCR) | payer MEDICARE, OTHER ==
[~2020-08-06] VITALS: Ht 170.2 cm; Wt 63.6 kg
[2020-08-06] VITALS (11 sets, daily range): BP systolic 120–138; BP diastolic 65–88; PULSE 75–91; TEMP 98–98.7
[~2020-08-06 15:16] MED LIST changes: +B-121000 MCG PO; +FOLIC ACID 11 MG/TA1 PO; +NORCO 325 MG-51 TAB PO; +TYLENOL 325MG325 MG PO
--- NOTE | 2020-08-06 19:06 | NUR ---
PT TOLERATED TRANSFUSION WELL, HE WAS STEADY ON HIS FEET AFTER, PORT DC'D, FLUSHED WITH 20 CC NS AND 5 CC HEPARIN FLUSH. PT ESCORTED TO EXIT VIA WHEELCHAIR, THIS RN WAITED WITH HIM TILL HIS RIDE ARRIVED.
== END 2020-08-06 19:00 | disposition home or self-care (01) ==
LOC: EUO 15:16
DX: C34.12 Malignant neoplasm of upper lobe, left bronchus or lung (principal); D64.9 Anemia, unspecified; Z95.9 Presence of cardiac and vascular implant and graft, unspecified
CPT/HCPCS: J1644; J7050; P9040

== ENCOUNTER 2020-10-03 07:55 | Outpatient (RCR) | payer MEDICARE, OTHER ==
[2020-10-03] VITALS (9 sets, daily range): BP systolic 103–132; BP diastolic 60–92; PULSE 72–91; TEMP 97.7–98.6
[~2020-10-03] VITALS: Ht 170.2 cm; Wt 80.4 kg
[~2020-10-03 07:55] MED LIST changes: -BREO ELLIPTA 21 EACH IH
[2020-10-03] MEDS ORDERED: LASIX 40MG TABL40 MG PO (10:57)
[2020-10-03] MEDS ORDERED: DECADRON 4MG TAB4 MG PO (11:02)
[2020-10-03] MEDS ORDERED: LEVAQUIN 5500 MG/TA1 PO (11:02)
[2020-10-03] MEDS ORDERED: ZOFRAN8 MG PO (11:03)
== END 2020-10-03 14:56 | disposition home or self-care (01) ==
LOC: EUO 07:55
DX: C34.12 Malignant neoplasm of upper lobe, left bronchus or lung (principal)
CPT/HCPCS: J1644; J7050; P9040

== ENCOUNTER 2020-10-11 09:15 | Emergency (ER) | payer MEDICARE, OTHER ==
[~2020-10-11] VITALS: Ht 170.2 cm; Wt 82.3 kg
[~2020-10-11 09:15] MED LIST changes: +DECADRON 4MG TAB4 MG PO; +ZOFRAN8 MG PO
[2020-10-11 09:22] VITALS: TEMP 97.9
[2020-10-11] MEDS ORDERED: CLEOCIN HCL300 MG PO (12:19)
[2020-10-11 13:33] VITALS: BP 108/62; PULSE 108
== END 2020-10-11 12:31 | disposition home or self-care (01) ==
LOC: COL.ER 09:15
DX: S70.362A Insect bite (nonvenomous), left thigh, initial encounter (principal); L08.9 Local infection of the skin and subcutaneous tissue, unspecified; J44.9 Chronic obstructive pulmonary disease, unspecified; I50.9 Heart failure, unspecified; Z87.891 Personal history of nicotine dependence; Z90.89 Acquired absence of other organs; Z85.118 Personal history of other malignant neoplasm of bronchus and lung; Z88.8 Allergy status to other drugs, medicaments and biological substances; Z79.51 Long term (current) use of inhaled steroids; Z79.01 Long term (current) use of anticoagulants

== ENCOUNTER 2020-11-06 15:05 | Outpatient (RCR) | payer MEDICARE, OTHER ==
[~2020-11-06 15:05] MED LIST changes: +CLEOCIN HCL300 MG PO
[2020-11-07] VITALS (10 sets, daily range): BP systolic 116–149; BP diastolic 70–98; PULSE 67–83; TEMP 97.8–98.6
--- NOTE | 2020-11-07 14:15 | NUR ---
Patient to room 343 via wheelchair. Transfers self from wheelchair to bed. Denies pain. Oxygen on at 4L/NC, transferred oxygen to our system and provided new nasal cannula as the patient's had a hole in the tubing. Vital signs as follows: Temp 98.6 oral, pulse 78 and irregular, respirations 22, SpO2 99%, BP 152/81. Reviewed consent with the patient. Port accessed in right upper chest using a 19 gauge x 0.75 inch needle using sterile technique. Blood return received. Flushes without difficulty. Premedications given as ordered. Patient connected to NS at 50ml/hr. Oriented to room and process on receiving blood. Denies questions or needs.
--- NOTE | 2020-11-07 14:29 | NUR ---
Initial unit of irradiated PRBCs started at 60mL/hr with this nurse at bedside. Patient resting in bed.
--- NOTE | 2020-11-07 14:43 | NUR ---
Patient tolerates initial 15 minutes of blood transfusion without difficulty. Rate increased to 150mL/hr. Patient remains in bed. Denies additional needs.
--- NOTE | 2020-11-07 15:47 | NUR ---
Lying in bed with eyes closed. Opens eyes when enter room. Says that he is doing good. Infusion continues at 150mL/hr. Patient denies needs at this time.
--- NOTE | 2020-11-07 16:36 | NUR ---
First blood transfusion complete. Vital signs stable. Patient says that he feels good. Remains lying in bed. Second unit of irradiated PRBCs started at this time. THis nurse at bedside.
--- NOTE | 2020-11-07 16:50 | NUR ---
Vital signs stable. Patient continues to feel good. Rate increased to 150mL/hr. Provided grape juice per patient request. Offer to get patient food and patient declines at this time. Denies additional needs.
--- NOTE | 2020-11-07 18:27 | NUR ---
Transfusion complete. Vital signs stable. Patient tolerates without any adverse reactions.
--- NOTE | 2020-11-07 18:35 | NUR ---
Flushed port with 10mL saline then 5mL of Heparin. Port site deaccessed with all intact. Pressure dressing applied with 4x4 and tegaderm. Patient tolerates without difficulty. Patient is going to call at this time to have her come pick him up at ER entrance. Patient will call staff when is at ER to pick him up. Patient denies needs at this time.
--- NOTE | 2020-11-07 18:47 | NUR ---
Patient calls that his is at ER entrance to pick him up. Patient assisted out to vehicle via wheelchair by LUL Kumar.
== END 2020-11-07 18:48 | disposition home or self-care (01) ==
LOC: EUO 15:05 → SURG 11-07 13:30 → EUO 11-07 18:48
DX: C34.12 Malignant neoplasm of upper lobe, left bronchus or lung (principal); D64.9 Anemia, unspecified
CPT/HCPCS: OP; J1644; J7050; P9040

== ENCOUNTER 2020-12-03 13:00 | Outpatient (RCR) | payer MEDICARE, OTHER ==
[2020-12-03] VITALS (10 sets, daily range): BP systolic 106–145; BP diastolic 63–82; PULSE 61–72; TEMP 97.8–98.7
[~2020-12-03] VITALS: Ht 170.2 cm; Wt 81.3 kg
--- NOTE | 2020-12-03 19:13 | NUR ---
pt was taken to exit via wheelchair. Pt tolerated his transfusions well, he was up between infusions to go to restroom and was able to ambultae back to rm 9 from the bathroom with steady gait with his o2 at 4l/nc. sats 95% when sitting back down. otherwise pt had no problems and no concerns at the time of his departure.
== END 2020-12-03 19:15 | disposition home or self-care (01) ==
LOC: EUO 13:00
DX: C34.12 Malignant neoplasm of upper lobe, left bronchus or lung (principal)
CPT/HCPCS: J1644; J7050; P9040

== ENCOUNTER 2020-12-14 18:16 | Emergency (ER) | payer MEDICARE, OTHER ==
[~2020-12-14] VITALS: Ht 167.6 cm; Wt 80.5 kg
[2020-12-14 19:44] LABS: BASO % 0.5 % (0.0-2.0); EOS # 0.3 (0.0-0.7); EOS % 4.5 % (0-4.0); GRAN # 5.4 (1.4-6.5); GRAN % 70.6 % (42.2-75.2); HEMOGLOBIN 10.2 g/dl (13.5-18.0); LYMPH # 0.6 (1.2-3.4); LYMPH % 8.5 % (20.0-51.0); MEAN CELL VOLUME 98 fl (80.0-100.0); MEAN CORPUSCULAR HEMOGLOBIN 31 pg (27.0-31.0); MEAN CORPUSCULAR HGB CONC 32 g/dl (33.0-37.0); MEAN PLATELET VOLUME 10.2 fl (7.4-10.4); MONO # 1.2 (0.1-0.6); MONO % 15.2 % (1.7-9.3); PLATELET COUNT 117 K/mm3 (130-400); RED BLOOD COUNT 3.28 M/mm3 (4.20-5.60); REDCELL DISTRIBUTION WIDTH-CV 18.1 % (11.5-14.5)
[2020-12-14 19:58] LABS: ALBUMIN 3.8 gm/dL (3.5-5.0); BILIRUBIN,TOTAL 0.5 mg/dL (0.0-1.0); C-REACTIVE PROTEIN 5.6 mg/dL (0.0-0.9); CALCIUM 8.5 mg/dL (8.4-10.2); CREATININE, serum 1.77 (0.66-1.25); POTASSIUM 3.1 mmol/L (3.4-5.0); TOTAL PROTEIN 6.8 gm/dL (6.4-8.2)
[2020-12-14 19:59] VITALS: TEMP 98.9
[2020-12-14] MEDS ORDERED: DOXYCYCLINE 10100 MG PO (20:31)
[2020-12-14 21:50] VITALS: BP 125/68; PULSE 90
== END 2020-12-14 22:00 | disposition home or self-care (01) ==
LOC: COL.ER 18:16
PROVIDERS: Emergency Medicine
DX: L03.115 Cellulitis of right lower limb (principal); E87.6 Hypokalemia; I48.91 Unspecified atrial fibrillation; I11.0 Hypertensive heart disease with heart failure; I50.9 Heart failure, unspecified; J44.9 Chronic obstructive pulmonary disease, unspecified; E03.9 Hypothyroidism, unspecified; C34.90 Malignant neoplasm of unspecified part of unspecified bronchus or lung; E78.5 Hyperlipidemia, unspecified; D64.9 Anemia, unspecified; G47.33 Obstructive sleep apnea (adult) (pediatric); N40.0 Benign prostatic hyperplasia without lower urinary tract symptoms; Z88.1 Allergy status to other antibiotic agents; Z87.891 Personal history of nicotine dependence; Z79.890 Hormone replacement therapy; Z79.01 Long term (current) use of anticoagulants; Z79.51 Long term (current) use of inhaled steroids; Z99.89 Dependence on other enabling machines and devices
CPT/HCPCS: J0696; J7030

== ENCOUNTER 2020-12-21 09:56 | Inpatient (IN) | payer MEDICARE, OTHER ==
[~2020-12-21] VITALS: Ht 167.6 cm; Wt 84.8 kg
[2020-12-21 10:37] VITALS: BP 121/85; PULSE 60; TEMP 98.3
[2020-12-21] MEDS ORDERED: UROCIT-K 5540 MG/TAB PO (11:10)
--- NOTE | 2020-12-21 11:18 | NUR ---
Patient up by wheelchair to room 324, Alert and oriented x 3. Spouse at bedside. Educated patient and family on visitation policy. Assessment complete. Edema to RLE +4, outlined cellulitis margins. Port to right chest noted. Patient on 4L O2 at baseline during the day, 6L at night. Patient denies needs at this time.
[2020-12-21 12:25] LABS: BASO % 0.4 % (0.0-2.0); EOS # 0.1 (0.0-0.7); EOS % 1.4 % (0-4.0); GRAN # 6.4 (1.4-6.5); GRAN % 82.5 % (42.2-75.2); LYMPH # 0.4 (1.2-3.4); LYMPH % 5.3 % (20.0-51.0); MEAN CELL VOLUME 100 fl (80.0-100.0); MEAN CORPUSCULAR HGB CONC 30 g/dl (33.0-37.0); MEAN PLATELET VOLUME 10.4 fl (7.4-10.4); MONO # 0.8 (0.1-0.6); MONO % 9.8 % (1.7-9.3); PLATELET COUNT 111 K/mm3 (130-400); RED BLOOD COUNT 2.89 M/mm3 (4.20-5.60); REDCELL DISTRIBUTION WIDTH-CV 17.8 % (11.5-14.5)
[2020-12-21 12:37] LABS: ALBUMIN 3.3 gm/dL (3.5-5.0); BILIRUBIN,TOTAL 0.5 mg/dL (0.0-1.0); CALCIUM 8.6 mg/dL (8.4-10.2); CREATININE, serum 1.67 (0.66-1.25); MAGNESIUM 1.7 mg/dL (1.6-2.3); POTASSIUM 3.4 mmol/L (3.4-5.0); TOTAL PROTEIN 6.2 gm/dL (6.4-8.2)
[2020-12-21 12:39] LABS: HEMOGLOBIN 8.8 g/dl (13.5-18.0); MEAN CORPUSCULAR HEMOGLOBIN 30 pg (27.0-31.0)
[2020-12-21] MEDS ORDERED: KLOR-CON 1010 MEQ PO (13:02)
[2020-12-21] MEDS ORDERED: SYNTHROID0.1 MG/TAB PO (13:05)
--- NOTE | 2020-12-21 14:00 | NUR ---
Vancomycin Initial Dosing Pharmacy Note Ordering provider: Wilfred Garcia MD Indication/duration: Cellulitis LABS: SCr 1.67, CrCl~31, GFR 40 Recommendation: Giving Vancomycin 1.5 gm IV x1 loading dose, then 1.25 gm IV q24h. Pharmacy will continue to monitor and check a Vancomycin trough on 12/24/20. Loading dose: 1.5 grams Maintenance dose: 1.25 grams every 24 hours Trough goal: 10-15 ug/mL
--- NOTE | 2020-12-21 15:28 | NUR ---
I met with patient and his at bedside this afternoon. They were aware that Dr Benoit had requested that I talk with them about palliative care--mainly hospice services. They have a friend who works with [facility] who has made connection with them and reviewed with them what hospice can do to help them. Katharina would very much like for pt to stay at home with her providing the majority of his care--"that is what 'for better or for worse' means! Bernard is concerned that he not be a burden for his --that she be his beloved --not a tired caregiver. Bernard would like to be able to be with his family more and they are planning a family meeting after his cellulitis has cleared to discuss "where we go from here". They do have great family support--this they both agree on. Both do agree that they can start hospice later, when they are ready--not now! Bernard is verbalizing that he is getting weaker and as long as he can do what is takes to take care of himself--that is great, but when he can't take care of himself--he would want Katharina to have help, perhaps at the hospice house. She reports that [facility] did a great job providing end of life care for a friend of hers. The do both agree that they are not ready for hospice now.
--- NOTE | 2020-12-21 15:50 | NUR ---
Consulted called to Dr. Hilliard
[2020-12-21 17:27] VITALS: BP 130/75; PULSE 80; TEMP 98.2
--- NOTE | 2020-12-21 18:02 | NUR ---
Notified Jennifer GUARDADO, patient HR 160's. Contacted RT for EKG.
--- NOTE | 2020-12-21 18:08 | NUR ---
Jennifer GUARDADO in to see patient.
--- NOTE | 2020-12-21 19:00 | NUR ---
Notified that patient was in a fib RVR. Patient is not symptomatic. Called GEO Rodriguez, to let her know.
[2020-12-21 19:43] VITALS: BP 116/76; PULSE 96; TEMP 98.1
--- NOTE | 2020-12-21 21:00 | NUR ---
Patient resting in bed. No complaints of pain. Zosyn infusing to port in his right chest. Patient on 6 L of oxygen via nasal cannula. 3+ edema to right lower extremity. Patient denies any needs at this time. Call light in reach.
[2020-12-21 23:51] VITALS: BP 119/73; PULSE 93; TEMP 98.3
[2020-12-22 04:14] VITALS: BP 127/56; PULSE 80; TEMP 97.9
[2020-12-22 06:47] LABS: BASO % 0.6 % (0.0-2.0); EOS # 0.2 (0.0-0.7); EOS % 3.2 % (0-4.0); GRAN # 5.5 (1.4-6.5); GRAN % 75.2 % (42.2-75.2); LYMPH # 0.6 (1.2-3.4); LYMPH % 8.4 % (20.0-51.0); MEAN CELL VOLUME 101 fl (80.0-100.0); MEAN CORPUSCULAR HGB CONC 30 g/dl (33.0-37.0); MONO # 0.9 (0.1-0.6); PLATELET COUNT 109 K/mm3 (130-400); RED BLOOD COUNT 2.51 M/mm3 (4.20-5.60); REDCELL DISTRIBUTION WIDTH-CV 17.9 % (11.5-14.5)
[2020-12-22 06:53] LABS: CALCIUM 8.5 mg/dL (8.4-10.2); CREATININE, serum 1.85 (0.66-1.25); POTASSIUM 3.4 mmol/L (3.4-5.0)
[2020-12-22 06:55] LABS: HEMATOCRIT 25.3 % (42.0-52.0); HEMOGLOBIN 7.7 g/dl (13.5-18.0); MEAN CORPUSCULAR HEMOGLOBIN 31 pg (27.0-31.0)
[2020-12-22 08:41] VITALS: BP 116/76; PULSE 53; TEMP 98.1
--- NOTE | 2020-12-22 09:50 | NUR ---
Initial visit; Patient thanked Milieu Technician for looking in on him and assured Milieu Technician he has a good team at his confucianist offering comfort, encouragement and prayer. Milieu Technician let him know she is available to help while he here at [facility].
--- NOTE | 2020-12-22 11:20 | NUR ---
JODY met with the patient and his , Katharina (ph#[phone]), to discuss discharge plan. The patient lives in [place] with his . Their daughter stays with them on the weekend. He reports independence with ADLs and has a cane, walker, wheelchair, and is on continuous home oxygen from [facility]. The patient's PCP is Dr. Maria G Benoit and he receives his medications from [facility]. He reports no difficulties obtaining his meds. The patient's provided JODY with a copy of the patient's DPOA-HC. SW placed the document in the patient's chart. The patient's DPOA-HC is his and son, Parviz. The patient plans to return home with his upon discharge. SW to continue to follow.
[2020-12-22 11:36] VITALS: BP 110/70; BP 137/72; PULSE 105; PULSE 82; TEMP 98.2; TEMP 98.5
[2020-12-22 17:04] VITALS: BP 114/75; PULSE 91; TEMP 97.9
--- NOTE | 2020-12-22 18:00 | NUR ---
Patient has been doing well today. Denies pain and nausea. The reddness to E has not changed today. It is still marked, did not get better but did not go outside the marked borders. His was at bedside most the day. He gets very short of breath when he does any activity. He is independent in the room. No other chagnes at this time. Call light within reach.
[2020-12-22 20:02] VITALS: BP 115/70; PULSE 114; TEMP 97.7
[2020-12-23 00:11] VITALS: BP 113/66; PULSE 88; TEMP 98.1
[2020-12-23 04:40] VITALS: BP 130/63; PULSE 83; TEMP 97.9
--- NOTE | 2020-12-23 05:21 | NUR ---
Patient slept throughout the night with his CPAP. Zosyn infusing now. PAtient's right leg is still swollen and red. Patient up to the bathroom trying to have a bowel movement right now.
[2020-12-23 06:59] LABS: BASO % 0.5 % (0.0-2.0); EOS # 0.2 (0.0-0.7); EOS % 2.3 % (0-4.0); GRAN # 6.2 (1.4-6.5); GRAN % 76.1 % (42.2-75.2); LYMPH # 0.6 (1.2-3.4); LYMPH % 7.3 % (20.0-51.0); MEAN CELL VOLUME 99 fl (80.0-100.0); MEAN CORPUSCULAR HGB CONC 32 g/dl (33.0-37.0); MEAN PLATELET VOLUME 11.1 fl (7.4-10.4); MONO # 1.1 (0.1-0.6); MONO % 13.4 % (1.7-9.3); PLATELET COUNT 108 K/mm3 (130-400); RED BLOOD COUNT 2.45 M/mm3 (4.20-5.60); REDCELL DISTRIBUTION WIDTH-CV 18.2 % (11.5-14.5)
[2020-12-23 07:01] LABS: HEMATOCRIT 24.3 % (42.0-52.0); HEMOGLOBIN 7.7 g/dl (13.5-18.0); MEAN CORPUSCULAR HEMOGLOBIN 31 pg (27.0-31.0)
[2020-12-23 07:12] LABS: CALCIUM 8.8 mg/dL (8.4-10.2); CREATININE, serum 1.78 (0.66-1.25); POTASSIUM 3.6 mmol/L (3.4-5.0)
[2020-12-23 08:07] VITALS: BP 144/93; PULSE 83; TEMP 98.2
[2020-12-23 12:06] VITALS: BP 130/59; PULSE 83; TEMP 98.8
[2020-12-23 15:20] VITALS: BP 119/78; PULSE 80; TEMP 97.9
[2020-12-23 19:11] VITALS: BP 127/66; PULSE 83; TEMP 97.8
--- NOTE | 2020-12-23 20:00 | NUR ---
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 Assessment complete. A&Ox3. Denies pain/nausea. Short of breath at rest-baseline. O2@4L/NC. Vitals stable. Tele showing A-Fib. Portacath flushes without difficulty-good blood return. Tolerating PO/voiding without difficulty. Right lower extremity noted to be red/warm to touch. Edema +2. Patient states he feels as if the swelling has gone down and that the margins are decreasing. Marked area with decresed redness. Plan of care discussed for this shift to include HS meds/oxygen/antibiotics/calling for questions/concerns. Verbalizes understanding/denies needs. Call light in reach. Will monitor.
[2020-12-24 00:09] VITALS: BP 138/70; PULSE 80; TEMP 97.6
[2020-12-24 03:31] VITALS: BP 140/72; PULSE 76; TEMP 98
--- NOTE | 2020-12-24 06:00 | NUR ---
Rested well this shift. Denies pain/nausea. CPAP on for most of the night-O2@4L/NC without. Denies current needs. Call light in reach. Will monitor.
[2020-12-24 06:26] LABS: BASO % 0.6 % (0.0-2.0); EOS # 0.3 (0.0-0.7); EOS % 4.1 % (0-4.0); GRAN # 5.3 (1.4-6.5); HEMATOCRIT 23.6 % (42.0-52.0); HEMOGLOBIN 7.1 g/dl (13.5-18.0); LYMPH # 0.6 (1.2-3.4); MEAN CELL VOLUME 101 fl (80.0-100.0); MEAN CORPUSCULAR HEMOGLOBIN 30 pg (27.0-31.0); MEAN CORPUSCULAR HGB CONC 30 g/dl (33.0-37.0); MEAN PLATELET VOLUME 10.7 fl (7.4-10.4); MONO # 0.9 (0.1-0.6); MONO % 12.7 % (1.7-9.3); PLATELET COUNT 116 K/mm3 (130-400); RED BLOOD COUNT 2.33 M/mm3 (4.20-5.60); REDCELL DISTRIBUTION WIDTH-CV 18.1 % (11.5-14.5)
[2020-12-24 06:40] LABS: C-REACTIVE PROTEIN 7.5 mg/dL (0.0-0.9); CALCIUM 8.6 mg/dL (8.4-10.2); CREATININE, serum 1.71 (0.66-1.25); POTASSIUM 3.4 mmol/L (3.4-5.0)
[2020-12-24 07:12] VITALS: BP 143/59; PULSE 80; TEMP 98.4
--- NOTE | 2020-12-24 08:10 | NUR ---
This nurse notified by telegraph printer mechanic hortencia of patient elevated heart rate. I spoke with Chantal with hospitalist. Continue with plan of care at this time, no new orders. Patient patient afib is not new.
--- NOTE | 2020-12-24 09:11 | NUR ---
Patient sitting up in bed. tolerated breakfast. minimal needs. denies the need for pain medication. Right leg elevated. reddness & edema noted. He reports chronic SOB, nothing new. He is waiting on his to arrive.
--- NOTE | 2020-12-24 09:41 | NUR ---
Met with patient and his again today. They feel that his leg is improving--less redness but still swollen. He is feeling very shaky from the steroids he is on he reports. At this time the patient and his are still planning to continue treatment and will plan to have a family meeting this spring to further talk about where they go from here. Granddaughter is a nurse who has done home health and they have a friend who is a hospice nurse with [facility]. Their goal is to remain at home with family support and including hospice services when they are needed in the future.
[2020-12-24 11:40] VITALS: BP 119/64; PULSE 62; TEMP 97.6
[2020-12-24] MEDS ORDERED: CEPHALEXIN500 M1 PO (12:54)
[2020-12-24] MEDS ORDERED: DOXYCYCLINE HY100 MG PO (12:55)
[2020-12-24] MEDS ORDERED: CARDIZEM CD 18180 MG PO (12:56)
[2020-12-24] MEDS ORDERED: LASIX 40MG TABL40 MG PO (12:57)
[2020-12-24] MEDS ORDERED: KLOR-CON 1010 MEQ PO (12:57)
--- NOTE | 2020-12-24 13:35 | NUR ---
The patient is to discharge back home with his today, 12/24. SW met with the patient and his and presented and read the IM form outloud to him. The patient verbalized understanding and gave SW approval to sign the form on his behalf. SW provided him with a copy. No additional needs at this time.
--- NOTE | 2020-12-24 16:24 | NUR ---
Patient resting in bed. Supportive at bedside. Patient ready to discharge. Completing Iv antibioitcs first. We reviewed all discharge instructions. Medication list reviewed with changes stressed. We discussed last dose take. Patient has his home O2 to take home. We reviewed follow up appts. Patient is already scheduled to see Geo in the am. He has follow up scheduled january 05 for cardiology. We scheduled appt for patient to see . Patient to see Vandana in February. Patient very on top of patient cares & med list. Will discharge once antibioic completed
[2020-12-24 16:36] VITALS: BP 131/79; PULSE 76; TEMP 97.6
--- NOTE | 2020-12-24 17:23 | NUR ---
antibiotic completed. port deassessed. ns flush & heparin used. patient getting dressed. patient wheeled out with all belongings. taking him home. they deny questins & concerns
== END 2020-12-24 17:51 | disposition home or self-care (01) | DRG 603 ==
LOC: SURG 10:13
PROVIDERS: Physician Assistant; ADMIT Hospitalist
DX: L03.115 Cellulitis of right lower limb (principal); E87.3 Alkalosis; J96.11 Chronic respiratory failure with hypoxia; I50.20 Unspecified systolic (congestive) heart failure; C34.90 Malignant neoplasm of unspecified part of unspecified bronchus or lung; I13.0 Hypertensive heart and chronic kidney disease with heart failure and stage 1 through stage 4 chronic kidney disease, or unspecified chronic kidney disease; I48.91 Unspecified atrial fibrillation; N18.9 Chronic kidney disease, unspecified; E78.5 Hyperlipidemia, unspecified; I27.20 Pulmonary hypertension, unspecified; L03.116 Cellulitis of left lower limb; D69.6 Thrombocytopenia, unspecified; I25.10 Atherosclerotic heart disease of native coronary artery without angina pectoris; N40.0 Benign prostatic hyperplasia without lower urinary tract symptoms; G47.33 Obstructive sleep apnea (adult) (pediatric); Z51.5 Encounter for palliative care; Z66 Do not resuscitate; Z87.440 Personal history of urinary (tract) infections; Z87.891 Personal history of nicotine dependence
CPT/HCPCS: 99223-AI; 99232-AI; 99239; J2543; J3370; J7050

== ENCOUNTER 2020-12-25 09:40 | Outpatient (RCR) | payer MEDICARE, OTHER ==
[~2020-12-25] VITALS: Ht 167.6 cm; Wt 72.0 kg
[~2020-12-25 09:40] MED LIST changes: +CARDIZEM CD 18180 MG PO; +CEPHALEXIN500 M1 PO; +DOXYCYCLINE HY100 MG PO; +KLOR-CON 1010 MEQ PO; +SYNTHROID0.1 MG/TAB PO
[2020-12-25 10:30] VITALS: BP 107/72; PULSE 62; TEMP 98
[2020-12-25 11:22] VITALS: BP 106/73; PULSE 52; TEMP 97.6
[2020-12-25 11:39] VITALS: BP 100/72; PULSE 59; TEMP 98
[2020-12-25 12:09] VITALS: BP 112/62; PULSE 73; TEMP 98
[2020-12-25 13:00] VITALS: BP 101/80; PULSE 90; TEMP 98.1
== END 2020-12-25 13:25 | disposition home or self-care (01) ==
LOC: EUO 09:40
DX: C34.12 Malignant neoplasm of upper lobe, left bronchus or lung (principal); D64.9 Anemia, unspecified
CPT/HCPCS: J1644; J7050; P9016

== ENCOUNTER 2021-01-28 13:39 | Outpatient (RCR) | payer MEDICARE, OTHER ==
[2021-01-28] VITALS (9 sets, daily range): BP systolic 104–134; BP diastolic 64–91; PULSE 72–96; TEMP 98.1–98.5
[2021-01-28] MEDS ORDERED: LASIX 40MG TABL40 MG PO (15:58)
== END 2021-02-01 08:29 | disposition still patient (30) ==
LOC: EUO 13:39
DX: C34.12 Malignant neoplasm of upper lobe, left bronchus or lung (principal); D64.9 Anemia, unspecified
CPT/HCPCS: J7050; P9016

== ENCOUNTER 2021-02-23 05:55 | Day surgery (SDC) | payer MEDICARE, OTHER ==
[~2021-02-23] VITALS: Ht 167.6 cm; Wt 82.7 kg
[2021-02-23 06:11] VITALS: BP 121/67; PULSE 78; TEMP 99
[2021-02-23] MEDS ORDERED: UROCIT-K 5540 MG/TAB PO (06:29)
[2021-02-23] MEDS ORDERED: BROVANA15 MCG/2 M IH (06:30)
[2021-02-23] MEDS ORDERED: ATROVENT I0.2 MG/1 M IH (06:31)
[2021-02-23] MEDS ORDERED: ALBUTEROL0.83 MG/ML IH (06:33)
[2021-02-23] MEDS ORDERED: PULMICORT0.5 MG/2 M IH (06:33)
[2021-02-23 08:25] VITALS: BP 112/73; PULSE 82; TEMP 98
--- NOTE | 2021-02-23 08:25 | NUR ---
The patient arrived back to [facility] from [facility] at this time. The patient appears alert and oriented and ambulated from the cart to the recliner in his room with the stand by assistance of two nurses and appeared to tolerate the activity well. Post procedure vital signs were started at this time. The patient's remains at his bedside. The patient agrees to try some grape juice at this time. Call light is within reach. The patient remains on his home oxygen dose of 4L per nasal cannula. Will continue to monitor the patient.
[2021-02-23] MEDS ORDERED: PROTONIX 40MG T40 MG PO (08:38)
[2021-02-23 08:40] VITALS: BP 112/90; PULSE 109
--- NOTE | 2021-02-23 08:40 | NUR ---
The patient appears to be tolerating the juice well and denies wanting anything further at this time. Dr. Bolden has been to the patient's bedside to speak with him and his regarding the findings of the procedures. Will continue to monitor the patient.
[2021-02-23 08:55] VITALS: BP 113/70; PULSE 100
--- NOTE | 2021-02-23 08:55 | NUR ---
The patient has finished his juice and voices a desire to be discharged home. Vital signs remain stable. Will continue to monitor the ptaient.
--- NOTE | 2021-02-23 09:10 | NUR ---
Discharge instructions were reviewed with the patient and his at this time. They both verbalized understanding and have no questions for the nurse at this time. The patient's port a cath to his right upper chest was deaccessed and the site was covered with a bandaid. The nurse instructed the patient to get dressed and press the call light when he is ready to be escorted out.
--- NOTE | 2021-02-23 09:20 | NUR ---
The patient was escorted out via wheelchair to a private vehicle by JOSEF Abad. The patient's belongings and discharge paperwork were sent with him. The patient's is present to drive him home.
== END 2021-02-23 09:20 | disposition home or self-care (01) ==
LOC: SDCO 05:55
DX: D12.2 Benign neoplasm of ascending colon (principal); D12.3 Benign neoplasm of transverse colon; D12.5 Benign neoplasm of sigmoid colon; K64.0 First degree hemorrhoids; K57.30 Diverticulosis of large intestine without perforation or abscess without bleeding; R19.5 Other fecal abnormalities; D50.0 Iron deficiency anemia secondary to blood loss (chronic); I10 Essential (primary) hypertension; I48.91 Unspecified atrial fibrillation; E78.5 Hyperlipidemia, unspecified; I11.0 Hypertensive heart disease with heart failure; I50.9 Heart failure, unspecified; J44.9 Chronic obstructive pulmonary disease, unspecified; E03.9 Hypothyroidism, unspecified; G47.33 Obstructive sleep apnea (adult) (pediatric); M19.90 Unspecified osteoarthritis, unspecified site; G89.29 Other chronic pain; M54.9 Dorsalgia, unspecified; Z85.118 Personal history of other malignant neoplasm of bronchus and lung; Z79.01 Long term (current) use of anticoagulants; Z99.89 Dependence on other enabling machines and devices; Z92.21 Personal history of antineoplastic chemotherapy; Z79.899 Other long term (current) drug therapy; Z88.8 Allergy status to other drugs, medicaments and biological substances
CPT/HCPCS: J2370; J2704; J3010; J7030